=== PATIENT | male | born 1935 | race Caucasian/White ===

== ENCOUNTER 2021-10-20 23:17 | Observation (INO) | payer OTHER ==
[2021-10-20 23:27] VITALS: TEMP 98.1; BMI 24.0
[2021-10-21 00:29] LABS: BASO % 0.1 % (0-2.0); HEMATOCRIT 39.5 % (35.4-49); HEMOGLOBIN 13.2 GM/dL (11.7-16.9); MCHC 33.5 g/dl (32.0-35.9); RBC 4.25 M/mm3 (4.00-5.60); WHITE BLOOD COUNT 7.7 K/mm3 (4.0-10.0)
[2021-10-21 00:31] LABS: LYMPH % 9.1 % (8-40); MCH 31.2 pg (25.7-33.7); MEAN CELL VOLUME 93.1 fl (80-96); MEAN PLT VOLUME 7.4 fl (7.5-11.1); MONO % 6.9 % (3.8-10.2); NEUT % 82.9 % (42.8-82.8); PLATELET COUNT 215 10^3/uL (134-434); RDW 14.2 % (11.9-15.9)
[2021-10-21 00:44] LABS: INR 0.96 (0.83-1.09)
[2021-10-21 00:51] LABS: CALCIUM 8.4 mg/dL (8.5-10.1)
[2021-10-21 00:52] LABS: ALBUMIN 3.3 g/dl (3.4-5.0); BLOOD UREA NITROGEN 18.4 mg/dL (7-18); MAGNESIUM 1.9 mg/dL (1.8-2.4)
[2021-10-21 00:55] LABS: CREATININE 0.9 mg/dL (0.55-1.3)
[2021-10-21 00:57] LABS: BILIRUBIN,TOTAL 0.5 mg/dL (0.2-1); TOT PROT 6.6 g/dl (6.4-8.2)
[2021-10-21] MEDS ORDERED: SODIUM CHLORIDE 0.9% 500 ML INFUS.BAG IV ONE (02:15)
[2021-10-21 03:47] LABS: URINE APPEARANCE CLEAR; URINE BILIRUBIN NEGATIVE (NEGATIVE); URINE COLOR YELLOW; URINE GLUCOSE (UA) NEGATIVE (NEGATIVE); URINE KETONE NEGATIVE (NEGATIVE); URINE LEUK ESTERASE NEGATIVE (NEGATIVE); URINE NITRITE NEGATIVE (NEGATIVE); URINE PROTEIN NEGATIVE (NEGATIVE); URINE UROBILINOGEN 0.2 mg/dL (0.2-1.0)
[2021-10-21] MEDS ORDERED: SODIUM CHLORIDE 1,000 ML IV SCH (04:00)
[2021-10-21 07:06] LABS: BASO % 0.2 % (0-2.0); EOS % 0.4 % (0-4.5); HEMATOCRIT 36.9 % (35.4-49); HEMOGLOBIN 12.7 GM/dL (11.7-16.9); LYMPH % 9.8 % (8-40); MCH 31.6 pg (25.7-33.7); MCHC 34.5 g/dl (32.0-35.9); MEAN CELL VOLUME 91.8 fl (80-96); MEAN PLT VOLUME 7.9 fl (7.5-11.1); MONO % 4.7 % (3.8-10.2); NEUT % 84.9 % (42.8-82.8); PLATELET COUNT 205 10^3/uL (134-434); RBC 4.02 M/mm3 (4.00-5.60); RDW 13.8 % (11.9-15.9); WHITE BLOOD COUNT 5.1 K/mm3 (4.0-10.0)
[2021-10-21 07:43] LABS: MAGNESIUM 1.9 mg/dL (1.8-2.4)
[2021-10-21 07:45] LABS: ALBUMIN 3.1 g/dl (3.4-5.0); BLOOD UREA NITROGEN 20.3 mg/dL (7-18)
[2021-10-21 07:46] LABS: CREATININE 0.7 mg/dL (0.55-1.3)
[2021-10-21 07:49] LABS: BILIRUBIN,TOTAL 0.5 mg/dL (0.2-1); PHOSPHOROUS 2.8 mg/dL (2.5-4.9)
[2021-10-21] MEDS ORDERED: ENOXAPARIN NA (PORCINE) 40 MG/0.4 ML DISP.SYRIN SQ SCH (10:00)
[2021-10-21] MEDS ORDERED: COLCHICINE 0.6 MG TAB PO ONE (11:47)
[2021-10-21] MEDS ORDERED: LIDOCAINE 5% TOPICAL PATCH TP ONE (11:47)
[2021-10-21] MEDS ORDERED: LIDOCAINE 5% TOPICAL PATCH ONE (12:40)
[2021-10-21] MEDS ORDERED: COLCHICINE 0.6 MG TAB ONE (12:41)
[2021-10-21] MEDS ORDERED: ENOXAPARIN NA (PORCINE) 40 MG/0.4 ML DISP.SYRIN SQ ONE (12:41)
[2021-10-21 18:20] VITALS: BP 117/67; PULSE 71
[2021-10-21] MEDS ORDERED: LIDOCAINE PATCH REMOVAL MC SCH (22:00)
== END 2021-10-21 18:17 | disposition home or self-care (01) ==
LOC: JER 23:17 → JERBED 10-21 01:59 → UNDOADMOB 10-21 01:59 → INTOOBSV 10-21 03:51 → OBSVTOIN 10-21 03:51 → JERBED 10-21 11:47
PROVIDERS: ADMIT Internal Medicine; ATTEND Nurse Practitioner Family
PROC: 3E023GC Introduction of Other Therapeutic Substance into Muscle, Percutaneous Approach (ICD-10-PCS; principal; 2021-10-21)
PROC: 3E0337Z Introduction of Electrolytic and Water Balance Substance into Peripheral Vein, Percutaneous Approach (ICD-10-PCS; 2021-10-21)
PROC: 3E023GC Introduction of Other Therapeutic Substance into Muscle, Percutaneous Approach (ICD-10-PCS; 2021-10-21)
DX: N40.0 Benign prostatic hyperplasia without lower urinary tract symptoms (principal); F17.210 Nicotine dependence, cigarettes, uncomplicated; R55 Syncope and collapse; G47.33 Obstructive sleep apnea (adult) (pediatric)
CPT/HCPCS: 36415; 70450-TC; 71045-TC-FY; 74177-TC; 80053; 80061; 81003; 83605; 83735; 84100; 84484; 85025; 85610; 87086; 93005; 93010; 93306-TC; 93880-TC; 96360; 96361; 96372; 99284-25; C9803; G0378; U0003; U0005